=== PATIENT | male | born 1950 | race Caucasian/White ===

== ENCOUNTER 2017-11-11 06:05 | Day surgery (SDC) | payer OTHER, MEDICAID ==
[~2017-11-11] VITALS: Ht 182.9 cm; Wt 86.2 kg
[~2017-11-11 06:05] MED LIST: ACET-2619 PO; ATI.5 PO; CARB1TAB37 PO; CLOZ100T PO; DIVA500E2 PO; GLUC-125; MAGN400S60 PO; MULT-1184 PO; SIMV20TA1 PO; VIC PO; ZOLP5TAB1 PO
== END 2017-11-11 09:20 | disposition home or self-care (01) ==
LOC: MDS 06:05 → MMU 06:07 → MDS 09:20
PROVIDERS: ATTEND Surgery
DX: L98.9 Disorder of the skin and subcutaneous tissue, unspecified (principal); Z53.8 Procedure and treatment not carried out for other reasons; Z85.828 Personal history of other malignant neoplasm of skin; Z79.899 Other long term (current) drug therapy; Z98.890 Other specified postprocedural states; F17.210 Nicotine dependence, cigarettes, uncomplicated; Z98.42 Cataract extraction status, left eye; Z98.41 Cataract extraction status, right eye
CPT/HCPCS: 36415; 84132; J0690; J7060; J7120

== ENCOUNTER 2017-12-01 10:11 | Day surgery (SDC) | payer OTHER, MEDICAID ==
[~2017-12-01] VITALS: Ht 182.9 cm; Wt 81.6 kg
[2017-12-01] MEDS ORDERED: MIDAZOLAM 2 MG/2 ML VIAL ONE (12:57)
[2017-12-01] MEDS ORDERED: fentaNYL 0.05 MG/ML VIAL ONE (12:57)
[2017-12-01] MEDS ORDERED: BUPIVACAINE-MPF 0.25% 30 ML VIAL INJ ONE (12:58)
[2017-12-01] MEDS ORDERED: DEXAMETHASONE 4 MG/ML VIAL IVP ONE (13:00)
[2017-12-01] MEDS ORDERED: SEVOFLURANE 250 ML BTL INH ONE (13:00)
[2017-12-01] MEDS ORDERED: PROPOFOL 200 MG/20 ML VIAL IV ONE (13:00)
[2017-12-01] MEDS ORDERED: ONDANSETRON 4 MG/2 ML VIAL IVP ONE (13:00)
[2017-12-01] MEDS ORDERED: MORPHINE SULFATE 2 MG/ML SYR IVP PRN ×2 (13:45→14:30)
[2017-12-01] MEDS ORDERED: MIDAZOLAM 2 MG/2 ML VIAL IV ONE (13:45)
[2017-12-01] MEDS ORDERED: MORPHINE SULFATE 4 MG/ML SYR IVP PRN ×2 (13:45)
[2017-12-01] MEDS ORDERED: NEOMYCIN/POLYMYXIN/BACITRACIN OIN 15 GM TUBE TP ONE (13:56)
[2017-12-01] MEDS ORDERED: MORPHINE SULFATE 4 MG/ML SYR IV PRN (14:30)
[2017-12-01] MEDS ORDERED: ONDANSETRON 4 MG/2 ML VIAL IV PRN (14:30)
[2017-12-01] MEDS ORDERED: HYDROcodone/APAP 5/325 MG 1 TAB TAB PO PRN (14:30)
[2017-12-01] MEDS ORDERED: ZOLPIDEM 5 MG TAB PO PRN (14:30)
[2017-12-01] MEDS ORDERED: HYDROmorphone PFS 2 MG/ML SYR IVP PRN (14:30)
== END 2017-12-01 15:52 ==
LOC: MDS 10:11 → MMU 10:20 → MDS 15:52
PROVIDERS: ATTEND Surgery
DX: C44.319 Basal cell carcinoma of skin of other parts of face (principal); C44.619 Basal cell carcinoma of skin of left upper limb, including shoulder; F20.9 Schizophrenia, unspecified; G20 Parkinson's disease; F03.90 Unspecified dementia, unspecified severity, without behavioral disturbance, psychotic disturbance, mood disturbance, and anxiety; F41.8 Other specified anxiety disorders; F17.210 Nicotine dependence, cigarettes, uncomplicated; Z98.42 Cataract extraction status, left eye; Z98.41 Cataract extraction status, right eye; Z98.890 Other specified postprocedural states; Z79.899 Other long term (current) drug therapy
CPT/HCPCS: 11606; 11644; 12032; 12052; 88305; J0690; J1100; J2250; J2405; J2704; J3010; J3490; J7060; J7120